=== PATIENT | female | born 1990 | race Caucasian/White ===

== ENCOUNTER 2018-03-15 14:18 | Emergency (ER) | payer OTHER, SELFPAY ==
[2018-03-15 14:20] VITALS: BP 127/84; PULSE 77; RESP 15; TEMP 36.7; O2SAT 100; BMI 22.2
[2018-03-15 18:07] VITALS: BP 116/74; PULSE 66; RESP 15; TEMP 36.7; O2SAT 100
[2018-03-15 19:19] LABS: Strep Grp A by PCR Rapid Negative
[2018-03-15 19:21] LABS: Add Manual Diff / Slide Review NO; Basophils Absolute Auto 0 /uL (0-100); Basophils Percent Auto 0.6 % (0-2); Eosinophils Absolute Auto 0 /uL (0-450); Hematocrit 39.4 % (36-46); Hemoglobin 13.2 g/dL (12.0-16.0); Lymphocytes Absolute Auto 1200 /uL (1100-4500); Lymphocytes Percent Auto 30.2 % (25-40); Mean Corpuscular HGB Conc 33.7 % (30-36); Mean Corpuscular Hemoglobin 31.4 PG (26-34); Mean Corpuscular Volume 93.2 fL (80-100); Monocytes Absolute Auto 300 /uL (0-900); Monocytes Percent Auto 6.3 % (3-14); Neutrophils Absolute Auto 2500 /uL (1500-7000); Neutrophils Percent Auto 61.9 % (50-75); Platelet Count 164 X10^3/uL (150-400); Red Blood Cell Count 4.22 X10^6/uL (4.0-5.2); Red Cell Distribution Width 12.7 % (11.6-14.8)
[2018-03-15 19:36] LABS: Monotest Negative (Negative)
[2018-03-15 19:39] LABS: Alanine Aminotransferase 26 IU/L (9-52); Albumin 4.5 g/dL (3.5-5.0); Albumin Globulin Ratio 1.5 (1.0-2.8); Alkaline Phosphatase 55 U/L (38-126); Aspartate Aminotransferase 14 IU/L (14-36); Bilirubin Total 0.3 mg/dL (0.2-1.3); Blood Urea Nitrogen 15 mg/dL (7-17); Carbon Dioxide 24 mmol/L (22-32); Chloride 107 mmol/L (98-107); Estimated Glomerular Filt Rate > 60.0 mL/min (>60); Globulin 3.1 g/dL (1.7-4.1); Glucose 91 mg/dL (70-100); HEMOLYSIS < 15 (0-50); Potassium 3.9 mmol/L (3.4-5.1); Sodium 142 mmol/L (137-145); Total Protein 7.6 g/dL (6.3-8.2)
[2018-03-15] MEDS: ACETAMINOPHEN 325 MG TABLET 975 MG PO (19:48)
[2018-03-15 20:03] VITALS: BP 123/73; PULSE 74; RESP 18; O2SAT 100
--- NOTE | 2018-03-15 22:26 | ED.NECK ---
HPI - Neck Pain/Injury <TAMARA Gomez - Last Filed: 04/15/18 22:31> General Chief Complaint: Neck Pain/Injury Stated Complaint: SWOLLEN GLANDS Time Seen by Provider: 03/15/18 18:20 Source: patient Mode of arrival: ambulatory Limitations: no limitations History of Present Illness HPI Narrative: The patient is a 27-year-old female nonsmoker who presents with a chief complaint of swollen glands. She states that she has a history of parotitis with stones and has been scheduled to see an ear nose and throat. She states that the gland on the left side of her neck has been swollen since last week. She states that her primary care physician gave her an IM injection yesterday, but she came in today because is not improving. She presents requesting that I do an I and D to remove the stone from her left parotid gland. She denies any fevers nausea vomiting or diarrhea. She states she can eat and drink. She does complain of copious purulent discharge. Related Data Previous Rx's Medication Instructions Recorded cephalexin 500 mg PO QID #40 cap 03/15/18 Allergies Allergy/AdvReac Type Severity Reaction Status Date / Time No Known Drug Allergies Allergy Verified 03/15/18 14:20 Review of Systems <TAMARA Gomez - Last Filed: 04/15/18 22:31> Review of Systems GENERAL: Denies chills, fatigue, malaise, fever, sweats. HEENT: See HPI RESPIRATORY: Denies dyspnea, cough, wheezing, hemoptysis, sputum. CARDIOVASCULAR: Denies chest pain, palpitations, orthopnea, edema, GASTROINTESTINAL: Denies nausea, vomiting, abdominal pain, diarrhea, constipation, melena. : Denies dysuria, frequency, incontinence, hematuria, urinary retention. MUSCULOSKELETAL: denies weakness, joint pain, or bony pain SKIN: Denies rash, skin lesions, or other NEUROLOGIC: Denies weakness, headache, numbness, change in speech, confusion, seizures, incoordination. PSYCHIATRIC: No concerning psychosocial issues. 12 point review of systems is negative except for those stated above PFSH <TAMARA Gomez - Last Filed: 04/15/18 22:31> Social History Smoking Status: Current every day smoker Social History Smoking Status: Current every day smoker Exam <TAMARA Gomez - Last Filed: 04/15/18 22:31> Narrative Exam Narrative: GENERAL: This is a well-nourished, well-developed patient, in no acute distress HEAD: Atraumatic. Normocephalic. No temporal or scalp tenderness. EYES: Pupils equal round and reactive. Extraocular motions intact. No scleral icterus. No injection or drainage. ENT: Nose without bleeding, purulent drainage or septal hematoma. Throat without erythema, tonsillar hypertrophy or exudate. Uvula midline. Airway patent. No noted discharge. NECK: Trachea midline. No JVD or lymphadenopathy. Supple, nontender, no meningeal signs. Palpable left parotid gland. CARDIOVASCULAR: Regular rate and rhythm without murmurs, gallops, or rubs. RESPIRATORY: Clear to auscultation. Breath sounds equal bilaterally. No wheezes, rales, or rhonchi. GASTROINTESTINAL: Abdomen soft, non-tender, nondistended. No hepato-splenomegaly, or palpable masses. No guarding. EXTREMITIES: No clubbing, cyanosis, or edema. No joint tenderness, effusion, or edema noted. BACK: Nontender without deformity or crepitance. No flank tenderness. NEURO: AOx3. SKIN: No rash or erythema. No erythema ecchymosis laceration or abrasion noted over left parotid gland. Initial Vital Signs Initial Vital Signs: Vital Signs Temperature 98.0 F 03/15/18 14:20 Pulse Rate 77 03/15/18 14:20 Respiratory Rate 15 03/15/18 14:20 Blood Pressure 127/84 03/15/18 14:20 Pulse Oximetry 100 03/15/18 14:20 <Kev Green DO - Last Filed: 04/16/18 18:11> Initial Vital Signs Initial Vital Signs: Vital Signs Temperature 98.0 F 03/15/18 14:20 Pulse Rate 77 03/15/18 14:20 Respiratory Rate 15 03/15/18 14:20 Blood Pressure 127/84 03/15/18 14:20 Pulse Oximetry 100 03/15/18 14:20 Course <FLORENTIN Gomez-BC - Last Filed: 04/15/18 22:31> Orders Ordered: Discontinued Medications Acetaminophen (Tylenol) 975 mg PO NOW ONE Stop: 03/15/18 19:39 Last Admin: 03/15/18 19:48 Dose: 975 mg <Kev Green DO - Last Filed: 04/16/18 18:11> Orders Ordered: Discontinued Medications Acetaminophen (Tylenol) 975 mg PO NOW ONE Stop: 03/15/18 19:39 Last Admin: 03/15/18 19:48 Dose: 975 mg MDM - Neck Pain/Injury <FLORENTIN Gomez-BC - Last Filed: 04/15/18 22:31> Lab Data Result diagrams: 03/15/18 19:15 03/15/18 19:15 Lab Results 03/15/18 03/15/18 03/15/18 Range/Units 18:50 19:15 19:15 WBC 4.0 L (4.5-11.0) X10^3/uL RBC 4.22 (4.0-5.2) X10^6/uL Hgb 13.2 (12.0-16.0) g/dL Hct 39.4 (36-46) % MCV 93.2 (80-100) fL MCH 31.4 (26-34) PG MCHC 33.7 (30-36) % RDW 12.7 (11.6-14.8) % Plt Count 164 (150-400) X10^3/uL Neut % (Auto) 61.9 (50-75) % Lymph % (Auto) 30.2 (25-40) % Schuyler % (Auto) 6.3 (3-14) % Eos % (Auto) 1.0 L (2-4) % Baso % (Auto) 0.6 (0-2) % Neut # (Auto) 2500 (4105-7639) /uL Lymph # (Auto) 1200 (7528-9060) /uL Schuyler # (Auto) 300 (0-900) /uL Eos # (Auto) 0 (0-450) /uL Baso # (Auto) 0 (0-100) /uL Sodium 142 (137-145) mmol/L Potassium 3.9 (3.4-5.1) mmol/L Chloride 107 (98-107) mmol/L Carbon Dioxide 24 (22-32) mmol/L BUN 15 (7-17) mg/dL Creatinine 0.50 L (0.52-1.04) mg/dL Estimated GFR > 60.0 (>60) mL/min BUN/Creatinine Ratio 30.0 H (6-22) Glucose 91 (70-100) mg/dL Calcium 10.0 (8.4-10.2) mg/dL Total Bilirubin 0.3 (0.2-1.3) mg/dL AST 14 (14-36) IU/L ALT 26 (9-52) IU/L Alkaline Phosphatase 55 (38-126) U/L Total Protein 7.6 (6.3-8.2) g/dL Albumin 4.5 (3.5-5.0) g/dL Globulin 3.1 (1.7-4.1) g/dL Albumin/Globulin Ratio 1.5 (1.0-2.8) Monoscreen (Negative) Group A Strep (PCR) Negative 03/15/18 Range/Units 19:15 WBC (4.5-11.0) X10^3/uL RBC (4.0-5.2) X10^6/uL Hgb (12.0-16.0) g/dL Hct (36-46) % MCV (80-100) fL MCH (26-34) PG MCHC (30-36) % RDW (11.6-14.8) % Plt Count (150-400) X10^3/uL Neut % (Auto) (50-75) % Lymph % (Auto) (25-40) % Schuyler % (Auto) (3-14) % Eos % (Auto) (2-4) % Baso % (Auto) (0-2) % Neut # (Auto) (5013-6885) /uL Lymph # (Auto) (5545-3457) /uL Schuyler # (Auto) (0-900) /uL Eos # (Auto) (0-450) /uL Baso # (Auto) (0-100) /uL Sodium (137-145) mmol/L Potassium (3.4-5.1) mmol/L Chloride (98-107) mmol/L Carbon Dioxide (22-32) mmol/L BUN (7-17) mg/dL Creatinine (0.52-1.04) mg/dL Estimated GFR (>60) mL/min BUN/Creatinine Ratio (6-22) Glucose (70-100) mg/dL Calcium (8.4-10.2) mg/dL Total Bilirubin (0.2-1.3) mg/dL AST (14-36) IU/L ALT (9-52) IU/L Alkaline Phosphatase (38-126) U/L Total Protein (6.3-8.2) g/dL Albumin (3.5-5.0) g/dL Globulin (1.7-4.1) g/dL Albumin/Globulin Ratio (1.0-2.8) Monoscreen Negative (Negative) Group A Strep (PCR) MDM Narrative Medical decision making narrative: The patient is a 27-year-old female presents with a chief complaint of an infected left parotid gland. However she does not have an elevated white blood cell count, is afebrile and hemodynamically stable. Thus I elected to treat her with cephalexin p.o. given her purulent drainage as per up-to-date recommendations. I encouraged her to keep her follow-up with her ENT. Discussed return precautions of fever, inability keep down fluids or any acute concerns. Encouraged her to follow up with primary care provider in the next few days. Patient no questions or concerns upon discharge. <Kev Green DO - Last Filed: 04/16/18 18:11> Lab Data Lab Results 03/15/18 03/15/18 03/15/18 Range/Units 18:50 19:15 19:15 WBC 4.0 L (4.5-11.0) X10^3/uL RBC 4.22 (4.0-5.2) X10^6/uL Hgb 13.2 (12.0-16.0) g/dL Hct 39.4 (36-46) % MCV 93.2 (80-100) fL MCH 31.4 (26-34) PG MCHC 33.7 (30-36) % RDW 12.7 (11.6-14.8) % Plt Count 164 (150-400) X10^3/uL Neut % (Auto) 61.9 (50-75) % Lymph % (Auto) 30.2 (25-40) % Schuyler % (Auto) 6.3 (3-14) % Eos % (Auto) 1.0 L (2-4) % Baso % (Auto) 0.6 (0-2) % Neut # (Auto) 2500 (0574-5164) /uL Lymph # (Auto) 1200 (0293-2785) /uL Schuyler # (Auto) 300 (0-900) /uL Eos # (Auto) 0 (0-450) /uL Baso # (Auto) 0 (0-100) /uL Sodium 142 (137-145) mmol/L Potassium 3.9 (3.4-5.1) mmol/L Chloride 107 (98-107) mmol/L Carbon Dioxide 24 (22-32) mmol/L BUN 15 (7-17) mg/dL Creatinine 0.50 L (0.52-1.04) mg/dL Estimated GFR > 60.0 (>60) mL/min BUN/Creatinine Ratio 30.0 H (6-22) Glucose 91 (70-100) mg/dL Calcium 10.0 (8.4-10.2) mg/dL Total Bilirubin 0.3 (0.2-1.3) mg/dL AST 14 (14-36) IU/L ALT 26 (9-52) IU/L Alkaline Phosphatase 55 (38-126) U/L Total Protein 7.6 (6.3-8.2) g/dL Albumin 4.5 (3.5-5.0) g/dL Globulin 3.1 (1.7-4.1) g/dL Albumin/Globulin Ratio 1.5 (1.0-2.8) Monoscreen (Negative) Group A Strep (PCR) Negative 03/15/18 Range/Units 19:15 WBC (4.5-11.0) X10^3/uL RBC (4.0-5.2) X10^6/uL Hgb (12.0-16.0) g/dL Hct (36-46) % MCV (80-100) fL MCH (26-34) PG MCHC (30-36) % RDW (11.6-14.8) % Plt Count (150-400) X10^3/uL Neut % (Auto) (50-75) % Lymph % (Auto) (25-40) % Schuyler % (Auto) (3-14) % Eos % (Auto) (2-4) % Baso % (Auto) (0-2) % Neut # (Auto) (9375-3140) /uL Lymph # (Auto) (3759-1950) /uL Schuyler # (Auto) (0-900) /uL Eos # (Auto) (0-450) /uL Baso # (Auto) (0-100) /uL Sodium (137-145) mmol/L Potassium (3.4-5.1) mmol/L Chloride (98-107) mmol/L Carbon Dioxide (22-32) mmol/L BUN (7-17) mg/dL Creatinine (0.52-1.04) mg/dL Estimated GFR (>60) mL/min BUN/Creatinine Ratio (6-22) Glucose (70-100) mg/dL Calcium (8.4-10.2) mg/dL Total Bilirubin (0.2-1.3) mg/dL AST (14-36) IU/L ALT (9-52) IU/L Alkaline Phosphatase (38-126) U/L Total Protein (6.3-8.2) g/dL Albumin (3.5-5.0) g/dL Globulin (1.7-4.1) g/dL Albumin/Globulin Ratio (1.0-2.8) Monoscreen Negative (Negative) Group A Strep (PCR) Discharge Plan Departure Patient Disposition: Home Clinical Impression: Sialadenitis Discharge Date/Time: 03/15/18 20:17 Interventions: ED Discharge Assessment Last Done: 03/15/18 20:16 Instructions: Parotitis Activity Restrictions/Additional Instructions: Given the drainage that you are having, I am starting on an antibiotic. Please follow-up with ENT as previously discussed. Please also follow up with her primary care provider. Monitor for difficulty breathing, high fevers, inability keep down fluids come back to the emergency department for acute concerns. Prescriptions: New cephalexin 500 mg capsule 500 mg PO QID Qty: 40 RF: 0 Referrals: Andrew Kaur MD [Non-Staff] - <Kev Green DO - Last Filed: 04/16/18 18:11> Cosign ED Attending Aniyaature Attestation: I was immediately available in the department for consultation. Documentation has been reviewed. I agree with assessment and plan.
--- NOTE | 2018-04-15 22:31 | ED_ITS ---
HPI - Neck Pain/Injury <TAMARA Gomez - Last Filed: 04/15/18 22:31> General Chief Complaint: Neck Pain/Injury Stated Complaint: SWOLLEN GLANDS Time Seen by Provider: 03/15/18 18:20 Source: patient Mode of arrival: ambulatory Limitations: no limitations History of Present Illness HPI Narrative: The patient is a 27-year-old female nonsmoker who presents with a chief complaint of swollen glands. She states that she has a history of parotitis with stones and has been scheduled to see an ear nose and throat. She states that the gland on the left side of her neck has been swollen since last week. She states that her primary care physician gave her an IM injection yesterday, but she came in today because is not improving. She presents requesting that I do an I and D to remove the stone from her left parotid gland. She denies any fevers nausea vomiting or diarrhea. She states she can eat and drink. She does complain of copious purulent discharge. Related Data Previous Rx's Medication Instructions Recorded cephalexin 500 mg PO QID #40 cap 03/15/18 Allergies Allergy/AdvReac Type Severity Reaction Status Date / Time No Known Drug Allergies Allergy Verified 03/15/18 14:20 Review of Systems <TAMARA Gomez - Last Filed: 04/15/18 22:31> Review of Systems GENERAL: Denies chills, fatigue, malaise, fever, sweats. HEENT: See HPI RESPIRATORY: Denies dyspnea, cough, wheezing, hemoptysis, sputum. CARDIOVASCULAR: Denies chest pain, palpitations, orthopnea, edema, GASTROINTESTINAL: Denies nausea, vomiting, abdominal pain, diarrhea, constipation, melena. : Denies dysuria, frequency, incontinence, hematuria, urinary retention. MUSCULOSKELETAL: denies weakness, joint pain, or bony pain SKIN: Denies rash, skin lesions, or other NEUROLOGIC: Denies weakness, headache, numbness, change in speech, confusion, seizures, incoordination. PSYCHIATRIC: No concerning psychosocial issues. 12 point review of systems is negative except for those stated above PFSH <TAMARA Gomez - Last Filed: 04/15/18 22:31> Social History Smoking Status: Current every day smoker Social History Smoking Status: Current every day smoker Exam <TAMARA Gomez - Last Filed: 04/15/18 22:31> Narrative Exam Narrative: GENERAL: This is a well-nourished, well-developed patient, in no acute distress HEAD: Atraumatic. Normocephalic. No temporal or scalp tenderness. EYES: Pupils equal round and reactive. Extraocular motions intact. No scleral icterus. No injection or drainage. ENT: Nose without bleeding, purulent drainage or septal hematoma. Throat without erythema, tonsillar hypertrophy or exudate. Uvula midline. Airway patent. No noted discharge. NECK: Trachea midline. No JVD or lymphadenopathy. Supple, nontender, no meningeal signs. Palpable left parotid gland. CARDIOVASCULAR: Regular rate and rhythm without murmurs, gallops, or rubs. RESPIRATORY: Clear to auscultation. Breath sounds equal bilaterally. No wheezes, rales, or rhonchi. GASTROINTESTINAL: Abdomen soft, non-tender, nondistended. No hepato- splenomegaly, or palpable masses. No guarding. EXTREMITIES: No clubbing, cyanosis, or edema. No joint tenderness, effusion, or edema noted. BACK: Nontender without deformity or crepitance. No flank tenderness. NEURO: AOx3. SKIN: No rash or erythema. No erythema ecchymosis laceration or abrasion noted over left parotid gland. Initial Vital Signs Initial Vital Signs: Vital Signs Temperature 98.0 F 03/15/18 14:20 Pulse Rate 77 03/15/18 14:20 Respiratory Rate 15 03/15/18 14:20 Blood Pressure 127/84 03/15/18 14:20 Pulse Oximetry 100 03/15/18 14:20 <Kev Green DO - Last Filed: 04/16/18 18:11> Initial Vital Signs Initial Vital Signs: Vital Signs Temperature 98.0 F 03/15/18 14:20 Pulse Rate 77 03/15/18 14:20 Respiratory Rate 15 03/15/18 14:20 Blood Pressure 127/84 03/15/18 14:20 Pulse Oximetry 100 03/15/18 14:20 Course <FLORENTIN Gomez-BC - Last Filed: 04/15/18 22:31> Orders Ordered: Discontinued Medications Acetaminophen (Tylenol) 975 mg PO NOW ONE Stop: 03/15/18 19:39 Last Admin: 03/15/18 19:48 Dose: 975 mg <Kev Green DO - Last Filed: 04/16/18 18:11> Orders Ordered: Discontinued Medications Acetaminophen (Tylenol) 975 mg PO NOW ONE Stop: 03/15/18 19:39 Last Admin: 03/15/18 19:48 Dose: 975 mg MDM - Neck Pain/Injury <FLORENTIN Gomez-BC - Last Filed: 04/15/18 22:31> Lab Data Result diagrams: 03/15/18 19:15 03/15/18 19:15 Lab Results 03/15/18 03/15/18 03/15/18 Range/Units 18:50 19:15 19:15 WBC 4.0 L (4.5-11.0) X10^3/uL RBC 4.22 (4.0-5.2) X10^6/uL Hgb 13.2 (12.0-16.0) g/dL Hct 39.4 (36-46) % MCV 93.2 (80-100) fL MCH 31.4 (26-34) PG MCHC 33.7 (30-36) % RDW 12.7 (11.6-14.8) % Plt Count 164 (150-400) X10^3/uL Neut % (Auto) 61.9 (50-75) % Lymph % (Auto) 30.2 (25-40) % Kinney % (Auto) 6.3 (3-14) % Eos % (Auto) 1.0 L (2-4) % Baso % (Auto) 0.6 (0-2) % Neut # (Auto) 2500 (5037-1718) /uL Lymph # (Auto) 1200 (9493-4396) /uL Kinney # (Auto) 300 (0-900) /uL Eos # (Auto) 0 (0-450) /uL Baso # (Auto) 0 (0-100) /uL Sodium 142 (137-145) mmol/L Potassium 3.9 (3.4-5.1) mmol/L Chloride 107 (98-107) mmol/L Carbon Dioxide 24 (22-32) mmol/L BUN 15 (7-17) mg/dL Creatinine 0.50 L (0.52-1.04) mg/dL Estimated GFR > 60.0 (>60) mL/min BUN/Creatinine Ratio 30.0 H (6-22) Glucose 91 (70-100) mg/dL Calcium 10.0 (8.4-10.2) mg/dL Total Bilirubin 0.3 (0.2-1.3) mg/dL AST 14 (14-36) IU/L ALT 26 (9-52) IU/L Alkaline Phosphatase 55 (38-126) U/L Total Protein 7.6 (6.3-8.2) g/dL Albumin 4.5 (3.5-5.0) g/dL Globulin 3.1 (1.7-4.1) g/dL Albumin/Globulin Ratio 1.5 (1.0-2.8) Monoscreen (Negative) Group A Strep (PCR) Negative 03/15/18 Range/Units 19:15 WBC (4.5-11.0) X10^3/uL RBC (4.0-5.2) X10^6/uL Hgb (12.0-16.0) g/dL Hct (36-46) % MCV (80-100) fL MCH (26-34) PG MCHC (30-36) % RDW (11.6-14.8) % Plt Count (150-400) X10^3/uL Neut % (Auto) (50-75) % Lymph % (Auto) (25-40) % Kinney % (Auto) (3-14) % Eos % (Auto) (2-4) % Baso % (Auto) (0-2) % Neut # (Auto) (8391-2161) /uL Lymph # (Auto) (8614-9043) /uL Kinney # (Auto) (0-900) /uL Eos # (Auto) (0-450) /uL Baso # (Auto) (0-100) /uL Sodium (137-145) mmol/L Potassium (3.4-5.1) mmol/L Chloride (98-107) mmol/L Carbon Dioxide (22-32) mmol/L BUN (7-17) mg/dL Creatinine (0.52-1.04) mg/dL Estimated GFR (>60) mL/min BUN/Creatinine Ratio (6-22) Glucose (70-100) mg/dL Calcium (8.4-10.2) mg/dL Total Bilirubin (0.2-1.3) mg/dL AST (14-36) IU/L ALT (9-52) IU/L Alkaline Phosphatase (38-126) U/L Total Protein (6.3-8.2) g/dL Albumin (3.5-5.0) g/dL Globulin (1.7-4.1) g/dL Albumin/Globulin Ratio (1.0-2.8) Monoscreen Negative (Negative) Group A Strep (PCR) MDM Narrative Medical decision making narrative: The patient is a 27-year-old female presents with a chief complaint of an infected left parotid gland. However she does not have an elevated white blood cell count, is afebrile and hemodynamically stable. Thus I elected to treat her with cephalexin p.o. given her purulent drainage as per up-to-date recommendations. I encouraged her to keep her follow-up with her ENT. Discussed return precautions of fever, inability keep down fluids or any acute concerns. Encouraged her to follow up with primary care provider in the next few days. Patient no questions or concerns upon discharge. <Kev Green DO - Last Filed: 04/16/18 18:11> Lab Data Lab Results 03/15/18 03/15/18 03/15/18 Range/Units 18:50 19:15 19:15 WBC 4.0 L (4.5-11.0) X10^3/uL RBC 4.22 (4.0-5.2) X10^6/uL Hgb 13.2 (12.0-16.0) g/dL Hct 39.4 (36-46) % MCV 93.2 (80-100) fL MCH 31.4 (26-34) PG MCHC 33.7 (30-36) % RDW 12.7 (11.6-14.8) % Plt Count 164 (150-400) X10^3/uL Neut % (Auto) 61.9 (50-75) % Lymph % (Auto) 30.2 (25-40) % Kinney % (Auto) 6.3 (3-14) % Eos % (Auto) 1.0 L (2-4) % Baso % (Auto) 0.6 (0-2) % Neut # (Auto) 2500 (3272-8374) /uL Lymph # (Auto) 1200 (6537-3555) /uL Kinney # (Auto) 300 (0-900) /uL Eos # (Auto) 0 (0-450) /uL Baso # (Auto) 0 (0-100) /uL Sodium 142 (137-145) mmol/L Potassium 3.9 (3.4-5.1) mmol/L Chloride 107 (98-107) mmol/L Carbon Dioxide 24 (22-32) mmol/L BUN 15 (7-17) mg/dL Creatinine 0.50 L (0.52-1.04) mg/dL Estimated GFR > 60.0 (>60) mL/min BUN/Creatinine Ratio 30.0 H (6-22) Glucose 91 (70-100) mg/dL Calcium 10.0 (8.4-10.2) mg/dL Total Bilirubin 0.3 (0.2-1.3) mg/dL AST 14 (14-36) IU/L ALT 26 (9-52) IU/L Alkaline Phosphatase 55 (38-126) U/L Total Protein 7.6 (6.3-8.2) g/dL Albumin 4.5 (3.5-5.0) g/dL Globulin 3.1 (1.7-4.1) g/dL Albumin/Globulin Ratio 1.5 (1.0-2.8) Monoscreen (Negative) Group A Strep (PCR) Negative 03/15/18 Range/Units 19:15 WBC (4.5-11.0) X10^3/uL RBC (4.0-5.2) X10^6/uL Hgb (12.0-16.0) g/dL Hct (36-46) % MCV (80-100) fL MCH (26-34) PG MCHC (30-36) % RDW (11.6-14.8) % Plt Count (150-400) X10^3/uL Neut % (Auto) (50-75) % Lymph % (Auto) (25-40) % Kinney % (Auto) (3-14) % Eos % (Auto) (2-4) % Baso % (Auto) (0-2) % Neut # (Auto) (9070-2430) /uL Lymph # (Auto) (2025-2836) /uL Kinney # (Auto) (0-900) /uL Eos # (Auto) (0-450) /uL Baso # (Auto) (0-100) /uL Sodium (137-145) mmol/L Potassium (3.4-5.1) mmol/L Chloride (98-107) mmol/L Carbon Dioxide (22-32) mmol/L BUN (7-17) mg/dL Creatinine (0.52-1.04) mg/dL Estimated GFR (>60) mL/min BUN/Creatinine Ratio (6-22) Glucose (70-100) mg/dL Calcium (8.4-10.2) mg/dL Total Bilirubin (0.2-1.3) mg/dL AST (14-36) IU/L ALT (9-52) IU/L Alkaline Phosphatase (38-126) U/L Total Protein (6.3-8.2) g/dL Albumin (3.5-5.0) g/dL Globulin (1.7-4.1) g/dL Albumin/Globulin Ratio (1.0-2.8) Monoscreen Negative (Negative) Group A Strep (PCR) Discharge Plan Departure Patient Disposition: Home Clinical Impression: Sialadenitis Discharge Date/Time: 03/15/18 20:17 Interventions: ED Discharge Assessment Last Done: 03/15/18 20:16 Instructions: Parotitis Activity Restrictions/Additional Instructions: Given the drainage that you are having, I am starting on an antibiotic. Please follow-up with ENT as previously discussed. Please also follow up with her primary care provider. Monitor for difficulty breathing, high fevers, inability keep down fluids come back to the emergency department for acute concerns. Prescriptions: New cephalexin 500 mg capsule 500 mg PO QID Qty: 40 RF: 0 Referrals: Andrew Kaur MD [Non-Staff] - <Kev Green DO - Last Filed: 04/16/18 18:11> Cosign ED Attending Aniyaature Attestation: I was immediately available in the department for consultation. Documentation has been reviewed. I agree with assessment and plan.
== END 2018-03-15 20:17 | disposition home or self-care (01) ==
PROVIDERS: Emergency Provider Nurse Practitioner Family
DX: K11.20 Sialoadenitis, unspecified (principal)
CPT/HCPCS: 36415; 80053; 85025; 86318; 87651; 99282; 99283

== ENCOUNTER → 2018-05-11 08:47 | Outpatient (CLI) | payer OTHER, SELFPAY ==
--- NOTE | 2018-05-11 | DI.CT.S_ITS ---
PROCEDURE: CT SOFT TISSUE NECK WO/W CON INDICATIONS: Sialolithiasis TECHNIQUE: Before and after the administration of intravenous contrast, 2.0 mm axial sections acquired through the neck and down to the verónica. Additional 2.0 mm coronal and sagittal reformats were generated of the contrast enhanced images. For radiation dose reduction, the following was used: automated exposure control. COMPARISON: None. FINDINGS: Image quality: Excellent. Lymph nodes: No enlarged lymph nodes seen throughout the neck. Vessels: Visualized vasculature appears patent. Neck spaces: The oropharynx, nasopharynx, and pharynx demonstrate no mucosal lesions. The vocal cords, false vocal cords, pyriform sinuses, epiglottis, vallecula, and tongue base all appear normal. Extramucosal spaces appear unremarkable. Glands: The parotid and thyroid glands appear normal. There are three calcifications identified along the left submandibular duct the largest measuring 6 mm. There is mild ductal prominence. A punctate calcification is present within the left submandibular gland. There is no surrounding inflammatory change. Miscellaneous: Visualized lungs appear clear. Superficial soft tissues appear normal. Bones: No suspicious bony lesions. Visualized sinuses and mastoids appear unremarkable. IMPRESSION: 1. Multiple calcifications within the duct to the submandibular gland with mild ductal dilation as above. In addition, a single punctate calcification is present within the gland itself. Dictated by: Shazia Whaley M.D. on 05/11/2018 at 12:56 Approved by: Shazia Whaley M.D. on 05/11/2018 at 13:01
== END ==
PROVIDERS: PCP Family Medicine; Visit Provider Otolaryngology
DX: K11.5 Sialolithiasis (principal); K11.22 Acute recurrent sialoadenitis
CPT/HCPCS: 70492; Q9967

== ENCOUNTER → 2020-08-07 09:59 | Outpatient (CLI) | payer OTHER, SELFPAY ==
[2020-08-07 19:10] LABS: Add Manual Diff / Slide Review NO; Basophils Absolute Auto 0 /uL (0-100); Basophils Percent Auto 0.4 % (0-2); Eosinophils Absolute Auto 100 /uL (0-450); Eosinophils Percent Auto 2.7 % (2-4); Hematocrit 42.3 % (36-46); Hemoglobin 14.3 g/dL (12.0-16.0); Lymphocytes Absolute Auto 1300 /uL (1100-4500); Lymphocytes Percent Auto 40.4 % (25-40); Mean Corpuscular HGB Conc 33.9 % (30-36); Mean Corpuscular Hemoglobin 31.4 PG (26-34); Mean Corpuscular Volume 92.6 fL (80-100); Monocytes Absolute Auto 200 /uL (0-900); Monocytes Percent Auto 5.7 % (3-14); Neutrophils Absolute Auto 1700 /uL (1500-7000); Neutrophils Percent Auto 50.8 % (50-75); Platelet Count 155 X10^3/uL (150-400); Red Blood Cell Count 4.57 X10^6/uL (4.0-5.2); Red Cell Distribution Width 12.5 % (11.6-14.8); White Blood Cell Count 3.3 X10^3/uL (4.5-11.0)
[2020-08-07 19:20] LABS: Alanine Aminotransferase 92 IU/L (<35); Albumin 4.7 g/dL (3.5-5.0); Albumin Globulin Ratio 1.6 (1.0-2.8); Alkaline Phosphatase 74 U/L (38-126); Aspartate Aminotransferase 52 IU/L (14-36); BUN Creatinine Ratio 30.9 (6-22); Bilirubin Total 0.4 mg/dL (0.2-1.3); Blood Urea Nitrogen 21 mg/dL (7-17); Carbon Dioxide 26 mmol/L (22-32); Chloride 104 mmol/L (98-107); Estimated Glomerular Filt Rate > 60.0 mL/min (>60); Globulin 2.9 g/dL (1.7-4.1); Glucose 87 mg/dL (70-100); HEMOLYSIS 19 (0-50); Sodium 140 mmol/L (137-145); Total Protein 7.6 g/dL (6.3-8.2)
[2020-08-07 19:36] LABS: Vitamin D 25 Hydroxy (D3) 25.3 ng/mL (30.0-100.0)
[2020-08-07 19:51] LABS: TSH w/ Reflex to FT4 2.06 uIU/mL (0.47-4.68)
[2020-08-07 20:09] LABS: Vitamin B12 453 pg/mL (239-931)
[2020-08-08 08:10] LABS: Ethanol (ETOH) < 10 mg/dL
== END ==
PROVIDERS: PCP Family Medicine; Visit Provider Physician Assistant Medical
DX: F31.9 Bipolar disorder, unspecified (principal); F32.9 Major depressive disorder, single episode, unspecified; G43.909 Migraine, unspecified, not intractable, without status migrainosus; G47.00 Insomnia, unspecified; R11.0 Nausea
CPT/HCPCS: 80053; 80320; 82306; 82607; 84443; 85025

== ENCOUNTER → 2020-12-11 09:46 | Outpatient (CLI) | payer OTHER, SELFPAY | PROVIDERS: PCP Family Medicine; Visit Provider Physician Assistant Medical | DX: R30.0 Dysuria (principal) | CPT/HCPCS: 87086 ==

== ENCOUNTER → 2021-02-04 09:14 | Outpatient (CLI) | payer OTHER, SELFPAY ==
[2021-02-05 20:54] LABS: COVID19 - ORCAS (NP or Nasal) Negative (Negative)
== END ==
PROVIDERS: PCP Physician Assistant Medical; Visit Provider Physician Assistant Medical
DX: R05.9 Cough, unspecified (principal)
CPT/HCPCS: U0003

== ENCOUNTER → 2021-02-06 08:11 | Outpatient (CLI) | payer OTHER, SELFPAY ==
[2021-02-06 09:04] LABS: Influenza A - CEPHEID Flu A POSITIVE (NEGATIVE); Influenza B - CEPHEID Flu B NEGATIVE (NEGATIVE)
== END ==
PROVIDERS: PCP Physician Assistant Medical; Referring Provider Family Medicine; Visit Provider Family Medicine
DX: R05.9 Cough, unspecified (principal)
CPT/HCPCS: 87502

== ENCOUNTER → 2021-02-25 09:19 | Outpatient (CLI) | payer OTHER, SELFPAY ==
[2021-02-25 18:53] LABS: Add Manual Diff / Slide Review NO; Basophils Absolute Auto 0 /uL (0-100); Basophils Percent Auto 0.7 % (0-2); Eosinophils Absolute Auto 100 /uL (0-450); Eosinophils Percent Auto 2.3 % (2-4); Hematocrit 38.5 % (36-46); Hemoglobin 13.1 g/dL (12.0-16.0); Lymphocytes Absolute Auto 1100 /uL (1100-4500); Lymphocytes Percent Auto 30.6 % (25-40); Mean Corpuscular HGB Conc 34.1 % (30-36); Mean Corpuscular Hemoglobin 31.3 PG (26-34); Mean Corpuscular Volume 91.8 fL (80-100); Monocytes Absolute Auto 300 /uL (0-900); Monocytes Percent Auto 6.9 % (3-14); Neutrophils Absolute Auto 2200 /uL (1500-7000); Neutrophils Percent Auto 59.5 % (50-75); Platelet Count 151 X10^3/uL (150-400); Red Cell Distribution Width 12.9 % (11.6-14.8); White Blood Cell Count 3.7 X10^3/uL (4.5-11.0)
[2021-02-25 19:24] LABS: Alanine Aminotransferase 14 IU/L (<35); Albumin 4.3 g/dL (3.5-5.0); Albumin Globulin Ratio 1.7 (1.0-2.8); Alkaline Phosphatase 72 U/L (38-126); Aspartate Aminotransferase 24 IU/L (14-36); BUN Creatinine Ratio 18.6 (6-22); Bilirubin Total 0.5 mg/dL (0.2-1.3); Blood Urea Nitrogen 11 mg/dL (7-17); Carbon Dioxide 24 mmol/L (22-32); Chloride 104 mmol/L (98-107); Cholesterol 157 mg/dL (140-199); Estimated Glomerular Filt Rate > 60.0 mL/min (>60); Gamma Glutamyl Transpeptidase 20 U/L (12-43); Globulin 2.6 g/dL (1.7-4.1); Glucose 91 mg/dL (70-100); HDL Cholesterol 36 mg/dL (40-60); HEMOLYSIS 31 (0-50); LDL Cholesterol Calculated 99 mg/dL (<100); Potassium 3.8 mmol/L (3.4-5.1); Sodium 134 mmol/L (137-145); Total Protein 6.9 g/dL (6.3-8.2); Triglycerides 112 mg/dL (35-150)
[2021-02-25 20:03] LABS: TSH w/ Reflex to FT4 1.11 uIU/mL (0.47-4.68)
[2021-02-25 20:15] LABS: Hemoglobin A1C% w Est Avg Glu 5.2 % (4.0-6.0)
== END ==
PROVIDERS: PCP Physician Assistant Medical; Visit Provider Physician Assistant
DX: F41.1 Generalized anxiety disorder (principal); G47.00 Insomnia, unspecified; G89.29 Other chronic pain; M54.9 Dorsalgia, unspecified; Z51.81 Encounter for therapeutic drug level monitoring
CPT/HCPCS: 80053; 80061; 82977; 83036; 84443; 85025

== ENCOUNTER → 2021-03-25 08:56 | Outpatient (CLI) | payer OTHER, SELFPAY ==
[2021-03-25 18:41] LABS: Add Manual Diff / Slide Review NO; Basophils Absolute Auto 0 /uL (0-100); Basophils Percent Auto 0.5 % (0-2); Eosinophils Absolute Auto 0 /uL (0-450); Hematocrit 41.4 % (36-46); Hemoglobin 14.3 g/dL (12.0-16.0); Lymphocytes Absolute Auto 1000 /uL (1100-4500); Mean Corpuscular HGB Conc 34.5 % (30-36); Mean Corpuscular Hemoglobin 31.6 PG (26-34); Mean Corpuscular Volume 91.6 fL (80-100); Monocytes Absolute Auto 200 /uL (0-900); Monocytes Percent Auto 5.2 % (3-14); Neutrophils Absolute Auto 2800 /uL (1500-7000); Neutrophils Percent Auto 68.3 % (50-75); Platelet Count 153 X10^3/uL (150-400); Red Blood Cell Count 4.52 X10^6/uL (4.0-5.2); Red Cell Distribution Width 12.9 % (11.6-14.8); White Blood Cell Count 4.1 X10^3/uL (4.5-11.0)
[2021-03-25 18:48] LABS: Alanine Aminotransferase 15 IU/L (<35); Albumin 4.6 g/dL (3.5-5.0); Albumin Globulin Ratio 1.7 (1.0-2.8); Alkaline Phosphatase 67 U/L (38-126); Aspartate Aminotransferase 21 IU/L (14-36); BUN Creatinine Ratio 29.4 (6-22); Bilirubin Total 0.6 mg/dL (0.2-1.3); Blood Urea Nitrogen 20 mg/dL (7-17); Calcium 9.5 mg/dL (8.4-10.2); Carbon Dioxide 26 mmol/L (22-32); Chloride 106 mmol/L (98-107); Estimated Glomerular Filt Rate > 60.0 mL/min (>60); Globulin 2.7 g/dL (1.7-4.1); Glucose 101 mg/dL (70-100); HEMOLYSIS < 15 (0-50); Potassium 4.2 mmol/L (3.4-5.1); Sodium 138 mmol/L (137-145); Total Protein 7.3 g/dL (6.3-8.2)
== END ==
PROVIDERS: Physician Assistant; PCP Physician Assistant Medical; Visit Provider Family Medicine
DX: G43.909 Migraine, unspecified, not intractable, without status migrainosus (principal)
CPT/HCPCS: 80053; 85025

== ENCOUNTER → 2021-07-10 09:44 | Outpatient (CLI) | payer OTHER, SELFPAY ==
[2021-07-10 19:57] LABS: Add Manual Diff / Slide Review NO; Basophils Absolute Auto 0 /uL (0-100); Basophils Percent Auto 0.7 % (0-2); Eosinophils Absolute Auto 100 /uL (0-450); Hematocrit 39.6 % (36-46); Hemoglobin 13.5 g/dL (12.0-16.0); Lymphocytes Absolute Auto 1300 /uL (1100-4500); Lymphocytes Percent Auto 36.2 % (25-40); Mean Corpuscular HGB Conc 34.2 % (30-36); Mean Corpuscular Hemoglobin 32.1 PG (26-34); Mean Corpuscular Volume 93.8 fL (80-100); Monocytes Absolute Auto 200 /uL (0-900); Monocytes Percent Auto 5.8 % (3-14); Neutrophils Absolute Auto 2000 /uL (1500-7000); Neutrophils Percent Auto 55.3 % (50-75); Platelet Count 144 X10^3/uL (150-400); Red Blood Cell Count 4.22 X10^6/uL (4.0-5.2); Red Cell Distribution Width 12.4 % (11.6-14.8); White Blood Cell Count 3.6 X10^3/uL (4.5-11.0)
== END ==
PROVIDERS: PCP Physician Assistant Medical; Visit Provider Physician Assistant
DX: B02.9 Zoster without complications (principal)
CPT/HCPCS: 85025

== ENCOUNTER → 2021-07-28 12:05 | Outpatient (CLI) | payer OTHER, SELFPAY | PROVIDERS: PCP Physician Assistant Medical; Visit Provider Physician Assistant | DX: N39.0 Urinary tract infection, site not specified (principal) | CPT/HCPCS: 87086 ==

== ENCOUNTER → 2021-07-29 08:34 | Outpatient (CLI) | payer OTHER, SELFPAY ==
[2021-07-29 21:36] LABS: Urine N gonorrhoeae NOT DETECTED
[2021-07-29 21:43] LABS: Urine Chlamydia NOT DETECTED
[2021-07-30 04:41] LABS: Candida species Negative (Negative); Gardnerella vaginalis Positive (Negative); Trichomoas vaginalis Negative (Negative)
[2021-08-02 12:43] LABS: HIV 1 RNA Non Reactive (Non Reactive); HIV 2 RNA Non Reactive (Non Reactive)
[2021-08-04 13:38] LABS: RPR Screen Non Reactive (Non Reactive)
== END ==
PROVIDERS: PCP Physician Assistant Medical; Visit Provider Physician Assistant
DX: Z11.3 Encounter for screening for infections with a predominantly sexual mode of transmission (principal); A64 Unspecified sexually transmitted disease
CPT/HCPCS: 86592; 87480; 87491; 87510; 87535; 87538; 87591; 87660

== ENCOUNTER → 2021-08-20 13:28 | Outpatient (CLI) | payer OTHER, SELFPAY ==
[2021-08-20 20:29] LABS: Add Manual Diff / Slide Review NO; Basophils Absolute Auto 0 /uL (0-100); Basophils Percent Auto 0.7 % (0-2); Eosinophils Absolute Auto 200 /uL (0-450); Eosinophils Percent Auto 3.8 % (2-4); Hematocrit 38.4 % (36-46); Hemoglobin 13.2 g/dL (12.0-16.0); Lymphocytes Absolute Auto 1300 /uL (1100-4500); Lymphocytes Percent Auto 31.9 % (25-40); Mean Corpuscular HGB Conc 34.4 % (30-36); Mean Corpuscular Hemoglobin 32.6 PG (26-34); Mean Corpuscular Volume 94.7 fL (80-100); Monocytes Absolute Auto 300 /uL (0-900); Neutrophils Absolute Auto 2300 /uL (1500-7000); Neutrophils Percent Auto 56.6 % (50-75); Platelet Count 144 X10^3/uL (150-400); Red Blood Cell Count 4.06 X10^6/uL (4.0-5.2); Red Cell Distribution Width 12.7 % (11.6-14.8); White Blood Cell Count 4.1 X10^3/uL (4.5-11.0)
== END ==
PROVIDERS: PCP Physician Assistant; Visit Provider Physician Assistant
DX: D72.819 Decreased white blood cell count, unspecified (principal)
CPT/HCPCS: 85025

== ENCOUNTER → 2021-09-09 09:21 | Outpatient (CLI) | payer OTHER, SELFPAY ==
[2021-09-09 20:06] LABS: Add Manual Diff / Slide Review NO; Basophils Absolute Auto 0 /uL (0-100); Basophils Percent Auto 0.4 % (0-2); Eosinophils Absolute Auto 100 /uL (0-450); Eosinophils Percent Auto 3.7 % (2-4); Hematocrit 38.8 % (36-46); Hemoglobin 13.4 g/dL (12.0-16.0); Lymphocytes Absolute Auto 1200 /uL (1100-4500); Lymphocytes Percent Auto 33.4 % (25-40); Mean Corpuscular HGB Conc 34.6 % (30-36); Mean Corpuscular Hemoglobin 32.8 PG (26-34); Mean Corpuscular Volume 94.6 fL (80-100); Monocytes Absolute Auto 200 /uL (0-900); Monocytes Percent Auto 5.6 % (3-14); Neutrophils Absolute Auto 2100 /uL (1500-7000); Neutrophils Percent Auto 56.9 % (50-75); Platelet Count 141 X10^3/uL (150-400); Red Cell Distribution Width 12.4 % (11.6-14.8); White Blood Cell Count 3.7 X10^3/uL (4.5-11.0)
[2021-09-11 20:57] LABS: Varicella IgM Antibody <0.91 index (0.00-0.90)
== END ==
PROVIDERS: PCP Physician Assistant; Visit Provider Physician Assistant
DX: D72.9 Disorder of white blood cells, unspecified (principal); B02.9 Zoster without complications
CPT/HCPCS: 85025; 86787

== ENCOUNTER → 2022-01-06 11:11 | Outpatient (CLI) | payer OTHER, SELFPAY ==
[2022-01-08 08:21] LABS: Candida species Negative (Negative); Gardnerella vaginalis Positive (Negative); Trichomoas vaginalis Negative (Negative)
== END ==
PROVIDERS: PCP Physician Assistant; Visit Provider Physician Assistant
DX: Z30.432 Encounter for removal of intrauterine contraceptive device (principal); K90.0 Celiac disease; N89.8 Other specified noninflammatory disorders of vagina
CPT/HCPCS: 87480; 87510; 87660

== ENCOUNTER 2023-10-01 20:22 | Emergency (ER) | payer SELFPAY ==
[2023-10-01 20:24] VITALS: BP 120/79; PULSE 80; RESP 16; TEMP 36.6; O2SAT 100; BMI 17.7
[2023-10-01 20:30] VITALS: BP 116/74; PULSE 84; O2SAT 94
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
[2023-10-01 21:00] VITALS: BP 108/72; PULSE 81; O2SAT 93
[2023-10-01] MEDS: ACETAMINOPHEN 325 MG TABLET PO (21:01)
[2023-10-01] MEDS: IBUPROFEN 400 MG TABLET PO (21:01)
[2023-10-01] MEDS: BACITRACIN OINT 0.9 GM PCKT 5 APPLIC TOP (21:02)
== END 2023-10-01 21:28 | disposition home or self-care (01) ==
PROVIDERS: Emergency Provider Emergency Medicine; PCP Physician Assistant
DX: S00.83XA Contusion of other part of head, initial encounter (principal); S40.212A Abrasion of left shoulder, initial encounter; V19.9XXA Pedal cyclist (driver) (passenger) injured in unspecified traffic accident, initial encounter
CPT/HCPCS: 99282; 99283